=== PATIENT | female | born 1995 | race Caucasian/White ===

== ENCOUNTER 2022-09-04 02:12 | Emergency (ER) | payer BC, OTHER ==
[2022-09-04] MEDS: Acetaminophen 500 MG Tab PO ONE (03:41)
[2022-09-04 03:47] LABS: CORONAVIRUS COVID-19 NAA POSITIVE (NEGATIVE)
[2022-09-04 04:03] LABS: ESTIMATED GFR 59 mL/min (>60)
[2022-09-04] MEDS: Sodium Chloride 0.9% 10 ML Syringe FLUSH PRN (04:57)
[2022-09-04] MEDS: Potassium Chloride 20 MEQ Tab.ER PO ONE (05:04)
[2022-09-04] MEDS ORDERED: Sodium Chloride 0.9% 100 ML IV STA (05:43)
[2022-09-04] MEDS: Iopamidol 755 Mg/ML 100 ML Bottle IV STA (05:55)
[2022-09-04] MEDS: cefTRIAXone 1 GM in Sodium Chloride 0.9% 50 ML IV ONE (07:22)
[2022-09-04] MEDS: oxyCODONE 5 MG Tab PO ONE (07:36)
== END 2022-09-04 07:58 | disposition home or self-care (01) ==
LOC: JP.ED 02:12
DX: U07.1 COVID-19 (principal); R07.81 Pleurodynia; M54.6 Pain in thoracic spine; R10.9 Unspecified abdominal pain; R79.1 Abnormal coagulation profile; R74.01 Elevation of levels of liver transaminase levels; E87.6 Hypokalemia; N17.9 Acute kidney failure, unspecified; N12 Tubulo-interstitial nephritis, not specified as acute or chronic; R82.71 Bacteriuria; R82.81 Pyuria; D72.829 Elevated white blood cell count, unspecified; D64.9 Anemia, unspecified; M79.10 Myalgia, unspecified site; Z98.890 Other specified postprocedural states
CPT/HCPCS: 0241U; 36415; 71045; 71045-26; 71275; 80053; 81001; 81025; 82550; 84439; 84443; 85025; 85379; 85651; 86140; 87086; 96365; 99284-25; A9270-GY; J0696; J3490; Q9967

== ENCOUNTER 2022-09-07 05:03 | Emergency (ER) | payer BC, OTHER ==
[2022-09-07] MEDS ORDERED: Ondansetron 4 MG Tab.DIS PO ONE (05:28)
[2022-09-07 06:02] LABS: ESTIMATED GFR 64 mL/min (>60)
[2022-09-07] MEDS ORDERED: Sodium Chloride 0.9% 1,000 ML IV SCH (06:30)
== END 2022-09-07 07:05 | disposition home or self-care (01) ==
LOC: JP.ED 05:03
DX: U07.1 COVID-19 (principal); N12 Tubulo-interstitial nephritis, not specified as acute or chronic; N17.9 Acute kidney failure, unspecified; R74.01 Elevation of levels of liver transaminase levels; Z79.899 Other long term (current) drug therapy; Z86.16 Personal history of COVID-19
CPT/HCPCS: 36415; 80053; 81001; 83516; 85025; 85379; 85651; 86140; 96360; 99284; J7030; Q0162